=== PATIENT | female | born 1940 | race Caucasian/White ===

== ENCOUNTER 2020-11-22 17:14 | Outpatient (RCR) | payer MEDICARE, SELFPAY ==
[2020-11-22] MEDS: COVID-19 VACC, MRNA(PFIZER)/PF 30 MCG/0.3 ML SYRINGE IM (14:16)
[2020-12-13] MEDS: COVID-19 VACC, MRNA(PFIZER)/PF 30 MCG/0.3 ML SYRINGE IM (13:55)
== END 2021-02-26 23:59 ==
LOC: IMMUN 17:14
PROVIDERS: Referring Provider Family Medicine; Visit Provider Family Medicine
DX: Z23 Encounter for immunization (principal)
CPT/HCPCS: 0001A; 0002A; 91300

== ENCOUNTER 2022-08-04 10:45 | Day surgery (SDC) | payer MEDICARE, SELFPAY ==
[2022-08-04] VITALS (7 sets, daily range): BP systolic 102–143; BP diastolic 43–60; PULSE 61–88; RESP 16; TEMP 36.2–37.3; O2SAT 98–100; BMI 18.6
--- NOTE | 2022-08-04 | EGD_PTH ---
PATIENT: LISANDRA HILL LOC: EN U#:[id number] AGE/SX: 81/F ROOM: RE08/04/[address]: Dr. Perry Dorado DO : 1940 BED: DIS: 08/04/2022 SPEC #: [id number] RECD: 08/04/22 14:07 STATUS: SHAHID REAubrey #: [id number] THIEN: 08/04/22 00:[address]: Perry Dorado DEPT: SURGICAL PATHOLOGY RECD BY: Jairo Hernandez ENTERED: 08/04/22 14:08 SP TYPE: EGD BIOPSY OT DR: Dr. Richy Garrison DO Tissues: A - Duodenum, NOS B - Esophageal mucous membrane C - Cecum, NOS Procedures: Special Stain Group II Surgery Specimen Level IV Alcian Blue/PAS (control) HEADER OPERATION: Colonoscopy, EGD ([facility]) with biopsies PRE-OP DIAGNOSIS: Cecum mass, abnormal weight loss TISSUE SUBMITTED: A. Duodenum biopsy, B. Distal esophagus, C. Cecal mass MICROSCOPIC DIAGNOSIS A. Duodenum biopsy: Fragments of duodenal mucosa, no pathologic diagnosis. B. Distal esophagus biopsy: Fragments of gastroesophageal mucosa with chronic inflammation. Intestinal metaplasia (goblet cell metaplasia) not identified. C. Cecal mass biopsy: Fragments of colonic mucosa with focal increased of submucosal adipose tissue, consistent with submucosal lipoma. /SJ 08/05/22 COMMENT B. Alcian blue/PAS stain with matched control is used in the evaluation of the specimen. Correlation with clinical, endoscopic findings and appropriate follow up are necessary. MICROSCOPIC DESCRIPTION Slides are reviewed. GROSS DESCRIPTION A. Received is one container labeled with the patient name and designated duodenum. The specimen consists of two irregular fragments of light alex soft tissue that in aggregate measure 0.6 x 0.3 x 0.1 cm. The specimen is totally submitted in one cassette. B. Received is one container labeled with the patient name and designated distal esophagus. The specimen consists of two irregular fragments of light alex soft tissue that in aggregate measure 1.0 x 0.3 x 0.1 cm. The specimen is totally submitted in one cassette. C. Received is one container labeled with the patient name and designated cecak mass. The specimen consists of multiple irregular fragments of light alex soft tissue that in aggregate measure 1.0 x 0.5 x 0.1 cm. The specimen is totally submitted in one cassette. /SJ:cc 08/04/22 TC:3 CPT: 67006 x3, 07354
[2022-08-04] MEDS: Lactated Ringers 1,000 ML 15 ML IV (11:29)
--- NOTE | 2022-08-04 12:32 | PCM.HP.BLA ---
History and Physical Date of Admission: 08/04/22 81 F who presents to the office today for cecal wall thickening and cecal mass on CT which was ordered for 35 lb wt loss. She reports the only change she had made was to cut out dairy, but wasn't intentionally losing weight. Weight loss stabilized. She has no GI complaints other than some gas, but feels fine once the gas passes. Denies nausea, vomiting, hematemesis, dysphagia, heartburn, abdominal pain, diarrhea, constipation, hematochezia, melena. 12/06/2021 CT abdomen and pelvis with contrast: Lipomatous lesion in the cecum measuring 2.4 x 2 x 2.2 cm, adjacent to this there is cecal wall thickening Pt has had 2 colonoscopies, last one was in 07/2018, negative ? FH colon cancer in her sister, age 65, had hemicolectomy, she is still alive at 70 ROS Const Constitutional: No fatigue ENT ENT: No difficulty swallowing Gastro GI: No abdominal pain, belching, bloating, change in bowel habits, change in stool character, coffee ground emesis, constipation, cramping, diarrhea, heartburn, difficulty swallowing, feeling full early, excessive flatus, incontinent of stools, Vomiting blood/hematemesis, Blood in stool, loose stools, Black,tarry stools, nausea/dyspepsia, pain with swallowing, vomiting or other Musc Musculoskeletal: Positive for back pain and Arthritis; No joint pain Skin Skin: No yellowing of the eye or itchy eyes Psych Psychiatric: No anxiety and No depression Endo Endocrine: No fatigue Aller/Imm Allergy/Immunologic: No itchy eyes Stevo/Lymp Hematologic/Lymphatic: Positive for easy bruising; No easy bleeding Exam Const General: cooperative and comfortable Nutritional Appearance: thin Orientation: alert, awake and oriented x3 HENMT Head: normal to inspection Eyes General: appearance normal, both eyes and all related structures Resp Effort & Inspection: normal respiratory effort GI Inspection: normal to inspection Palpation: soft Quality Reporting Tobacco Screening ([facility]) Smoking Status: Never smoker Assessment and Plan Assessment and Plan (1) Cecum mass: ?Status:?Acute ?Plan: 81-year-old female with unintentional weight loss of more than 35 pounds, CT showed cecal mass, she has no GI complaints, she is scheduled for endoscopy on 08/04/22 with office follow-up afterwards (2) Abnormal weight loss: ?Status:?Acute I have examined the patient and the H&P has been reviewed. There are no clinical changes since date of exam.
--- NOTE | 2022-08-04 13:12 | OP.EGD_ITS ---
Patient Name: Dorothy Rod Procedure Date: 08/04/2022 12:36 PM Date of : 1940 Age: 81 Procedure: Upper GI endoscopy Indications: Abnormal CT of the GI tract Providers: Perry Dorado DO Referring MD: Richy Garrison Medicines: Monitored Anesthesia Care Patient Profile: This is an 81 year old female. Refer to note in patient chart for documentation of history and physical. Patient has symptoms of acute dyspepsia. Complications: No immediate complications. Procedure: Pre-Anesthesia Assessment: - Prior to the procedure, a History and Physical was performed, and patient medications and allergies were reviewed. The risks and benefits of the procedure and the sedation options and risks were discussed with the patient. All questions were answered and informed consent was obtained. Patient identification and proposed procedure were verified by the physician in the pre-procedure area. Mental Status Examination: alert and oriented. Airway Examination: normal oropharyngeal airway and neck mobility. Respiratory Examination: clear to auscultation. CV Examination: normal. Prophylactic Antibiotics: The patient does not require prophylactic antibiotics. Prior Anticoagulants: The patient has taken no previous anticoagulant or antiplatelet agents. After reviewing the risks and benefits, the patient was deemed in satisfactory condition to undergo the procedure. The anesthesia plan was to use monitored anesthesia care (MAC). Immediately prior to administration of medications, the patient was re-assessed for adequacy to receive sedatives. The heart rate, respiratory rate, oxygen saturations, blood pressure, adequacy of pulmonary ventilation, and response to care were monitored throughout the procedure. The physical status of the patient was re-assessed after the procedure. After obtaining informed consent, the endoscope was passed under direct vision. Throughout the procedure, the patient's blood pressure, pulse, and oxygen saturations were monitored continuously. The Colonoscope was introduced through the mouth, and advanced to the second part of duodenum. The upper GI endoscopy was accomplished without difficulty. The patient tolerated the procedure well. Scope In: 12:43:14 PM Scope Out: 12:48:05 PM Total Procedure Duration Time 0 hours 4 minutes 51 seconds Findings: The Z-line was irregular and was found 38 cm from the incisors. Biopsies were taken with a cold forceps for histology. A medium-sized hiatal hernia was present. The exam of the stomach was otherwise normal. Patchy mildly erythematous mucosa without active bleeding and with no stigmata of bleeding was found in the first portion of the duodenum and in the second portion of the duodenum. Biopsies were taken with a cold forceps for histology. Verification of patient identification for the specimen was done. Estimated blood loss was minimal. Impression: - Z-line irregular, 38 cm from the incisors. Biopsied. - Medium-sized hiatal hernia. - Erythematous duodenopathy. Biopsied. Recommendation: - Discharge patient to home. - Resume previous diet. - Continue present medications. - Await pathology results. Procedure Code(s): --- Professional --- 70316, Esophagogastroduodenoscopy, flexible, transoral; with biopsy, single or multiple CPT copyright 2017 [employer] [place] [employer] [employer]. All rights reserved. The codes documented in this report are preliminary and upon medical billing coder review may be revised to meet current compliance requirements. Perry Dorado DO 08/04/2022 1:12:07 PM This report has been signed electronically. Number of Addenda: 0 Note Initiated On: 08/04/2022 12:36 PM
--- NOTE | 2022-08-04 13:12 | OP.CCLET_ITS ---
08/04/2022 Richy Garrison Re : Upper GI endoscopy procedure for Dorothy Rod Dear Bladimir This procedure was performed on Thursday, August 04, 2022. My impressions and recommendations are as follows: Impressions : - Z-line irregular, 38 cm from the incisors. Biopsied. - Medium-sized hiatal hernia. - Erythematous duodenopathy. Biopsied. Recommendations : - Discharge patient to home. - Resume previous diet. - Continue present medications. - Await pathology results. My findings are described in the full procedure note, which is enclosed. If I can be of further assistance, please feel free to contact me at . Sincerely, Perry Dorado, 08/04/2022 1:12:07 PM This report has been signed electronically.
--- NOTE | 2022-08-04 13:26 | OP.COLON_ITS ---
Patient Name: Dorothy Rod Procedure Date: 08/04/2022 12:48 PM Date of : 1940 Age: 81 Procedure: Colonoscopy Indications: Abdominal pain in the right lower quadrant, Abnormal CT of the GI tract, Weight loss Providers: Perry Dorado DO Referring MD: Richy Garrison Medicines: Monitored Anesthesia Care Patient Profile: This is an 81 year old female. Refer to note in patient chart for documentation of history and physical. Patient has symptoms of acute dyspepsia. Last Colonoscopy: date unknown. Unable to locate last colonoscopy report. Complications: No immediate complications. Procedure: Pre-Anesthesia Assessment: - Prior to the procedure, a History and Physical was performed, and patient medications and allergies were reviewed. The risks and benefits of the procedure and the sedation options and risks were discussed with the patient. All questions were answered and informed consent was obtained. Patient identification and proposed procedure were verified by the physician in the pre-procedure area. Mental Status Examination: alert and oriented. Airway Examination: normal oropharyngeal airway and neck mobility. Respiratory Examination: clear to auscultation. CV Examination: normal. Prophylactic Antibiotics: The patient does not require prophylactic antibiotics. Prior Anticoagulants: The patient has taken no previous anticoagulant or antiplatelet agents. After reviewing the risks and benefits, the patient was deemed in satisfactory condition to undergo the procedure. The anesthesia plan was to use monitored anesthesia care (MAC). Immediately prior to administration of medications, the patient was re-assessed for adequacy to receive sedatives. The heart rate, respiratory rate, oxygen saturations, blood pressure, adequacy of pulmonary ventilation, and response to care were monitored throughout the procedure. The physical status of the patient was re-assessed after the procedure. After I obtained informed consent, the scope was passed under direct vision. Throughout the procedure, the patient's blood pressure, pulse, and oxygen saturations were monitored continuously. The Colonoscope was introduced through the anus and advanced to the cecum, identified by appendiceal orifice and ileocecal valve. The colonoscopy was performed without difficulty. The patient tolerated the procedure well. The quality of the bowel preparation was good. Scope In: 12:50:10 PM Scope Withdrawal Time 0 hours 7 minutes 59 seconds Scope Out: 1:02:57 PM Total Procedure Duration Time 0 hours 12 minutes 47 seconds Findings: The perianal and digital rectal examinations were normal. Multiple small and large-mouthed diverticula were found in the recto-sigmoid colon, sigmoid colon and descending colon. There was a large lipoma, 30 mm in diameter, in the cecum. There was also a lipoma at the hepatic flexure about 0.5 mm in diameter. Biopsies were taken with a cold forceps for histology. Verification of patient identification for the specimen was done. Estimated blood loss was minimal. Impression: - Diverticulosis in the recto-sigmoid colon, in the sigmoid colon and in the descending colon. 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 Biopsied. Recommendation: - Discharge patient to home. - Resume previous diet. - Continue present medications. - Await pathology results. - Repeat colonoscopy for surveillance based on pathology results. Procedure Code(s): --- Professional --- 15505, Colonoscopy, flexible; with biopsy, single or multiple CPT copyright 2017 [employer]. All rights reserved. The codes documented in this report are preliminary and upon b2b sales executive review may be revised to meet current compliance requirements. Perry Dorado DO 08/04/2022 1:26:00 PM This report has been signed electronically. Number of Addenda: 0 Note Initiated On: 08/04/2022 12:48 PM
--- NOTE | 2022-08-04 13:26 | OP.CCLET_ITS ---
08/04/2022 Rcihy Garrison Re : Colonoscopy procedure for Dorothy Rod Dear Bladimir This procedure was performed on Thursday, August 04, 2022. My impressions and recommendations are as follows: Impressions : - Diverticulosis in the recto-sigmoid colon, in the sigmoid colon and in the descending colon. 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 Biopsied. Recommendations : - Discharge patient to home. - Resume previous diet. - Continue present medications. - Await pathology results. - Repeat colonoscopy for surveillance based on pathology results. My findings are described in the full procedure note, which is enclosed. If I can be of further assistance, please feel free to contact me at . Sincerely, Perry Dorado, 08/04/2022 1:26:00 PM This report has been signed electronically.
== END 2022-08-04 14:02 | disposition home or self-care (01) ==
LOC: EN 10:45 → AC 10:47
PROVIDERS: PCP Family Medicine; Referring Provider Family Medicine; Visit Provider Internal Medicine Gastroenterology
PROC: 0DJD8ZZ Inspection of Lower Intestinal Tract, Via Natural or Artificial Opening Endoscopic (ICD-10-PCS; CPT 45378; principal; 2022-08-04 13:25)
DX: D17.72 Benign lipomatous neoplasm of other genitourinary organ (principal); K44.9 Diaphragmatic hernia without obstruction or gangrene; R63.4 Abnormal weight loss; K57.30 Diverticulosis of large intestine without perforation or abscess without bleeding; Z80.0 Family history of malignant neoplasm of digestive organs
CPT/HCPCS: 45380; 43239; 88305; 88313; J7120; J2405